=== PATIENT | male | born 1975 | race Hispanic/Latino ===

== ENCOUNTER 2017-11-26 02:02 | Emergency (ER) | payer MEDICARE, MEDICAID ==
[2017-11-26 02:02] VITALS: BMI 28.8
--- NOTE | 2017-11-26 02:25 | ED PDOC ---
HPI: Psych/Substance Abuse Time Seen by Provider: 11/26/17 02:12 Chief Complaint (Nursing): Psychiatric Evaluation Chief Complaint (Provider): depression History Per: Patient History/Exam Limitations: no limitations Additional Complaint(s): 41 y/o male presents for evaluation of worsening depression x 1 week. Patient states his is currently very ill in an intensive care unit in [place] and he can not get to her. Patient crying. Denies suicidal/homicidal ideations, hallucinations, acute physical complaints. Noncompliant with psych meds Past Medical History Reviewed: Historical Data, Nursing Documentation, Vital Signs Vital Signs: Last Vital Signs Temp 97.5 F L 11/26/17 02:08 Pulse 69 11/26/17 02:08 Resp 18 11/26/17 02:08 BP 121/75 11/26/17 02:08 Pulse Ox 100 11/26/17 02:08 - Medical History PMH: Anxiety, Bipolar Disorder, Depression, Post Traumatic Stress Disorder, Schizophrenia, Seizures Denies: HIV, HTN, Chronic Kidney Disease, Sexually Transmitted Disease - Surgical History Surgical History: Tonsillectomy - Family History Family History: States: Unknown Family Hx - Immunization History Hx Tetanus Toxoid Vaccination: Yes Hx Influenza Vaccination: Yes Hx Pneumococcal Vaccination: Yes - Home Medications Home Medications: Ambulatory Orders Medication Instructions Recorded Alprazolam [Xanax] 2 mg PO BID 11/23/17 Divalproex [Depakote ER] 250 mg PO BID 11/23/17 - Allergies Allergies/Adverse Reactions: Allergies Allergy/AdvReac Type Severity Reaction Status Date / Time aripiprazole [From Abilify] Allergy Verified 11/23/17 21:53 haloperidol [From Haldol] Allergy Verified 11/23/17 21:53 lithium Allergy Verified 11/23/17 21:53 olanzapine [From Zyprexa] Allergy Verified 11/23/17 21:53 risperidone [From Risperdal] Allergy Verified 11/23/17 21:53 sertraline [From Zoloft] Allergy Verified 11/23/17 21:53 ziprasidone [From Geodon] Allergy Verified 11/23/17 21:53 Review of Systems ROS Statement: Except As Marked, All Systems Reviewed And Found Negative Psych: Positive for: Depression Physical Exam - Reviewed Nursing Documentation Reviewed: Yes Vital Signs Reviewed: Yes - Physical Exam Appears: Positive for: Well, Non-toxic, In Acute Distress (crying) Head Exam: Positive for: ATRAUMATIC, NORMAL INSPECTION, NORMOCEPHALIC Skin: Positive for: Normal Color Eye Exam: Positive for: Normal appearance ENT: Positive for: Normal ENT Inspection Cardiovascular/Chest: Positive for: Regular Rate, Rhythm Respiratory: Positive for: Normal Breath Sounds Gastrointestinal/Abdominal: Positive for: Normal Exam Back: Positive for: Normal Inspection Extremity: Positive for: Normal ROM Neurologic/Psych: Positive for: Alert, Oriented - ECG O2 Sat by Pulse Oximetry: 100 - Progress ED Course And Treament: Patient evaluated by tobacco farmworker; does not meet criteria for admission at this time as per Dr. Ortiz Information given for outpatient follow up Patient stable for discharge Return precautions given Disposition - Clinical Impression Clinical Impression: Depression - Patient ED Disposition Is Patient to be Admitted: No Counseled Patient/Family Regarding: Diagnosis, Need For Followup - Disposition Disposition: Routine/Home Disposition Time: 02:55 Condition: STABLE Instructions: Depression Forms: [employer] (Bulgarian)
[2017-11-26 03:00] VITALS: RESP 18; O2SAT 100
[2017-11-26 06:02] VITALS: BP 128/78; PULSE 74; TEMP 97.8
== END 2017-11-26 06:02 | disposition home or self-care (01) ==
LOC: H.ER 02:02
DX: F32.9 Major depressive disorder, single episode, unspecified (principal); Z86.59 Personal history of other mental and behavioral disorders; F43.10 Post-traumatic stress disorder, unspecified; Z91.14 Patient's other noncompliance with medication regimen

== ENCOUNTER 2017-11-27 16:57 | Emergency (ER) | payer MEDICARE, MEDICAID ==
[2017-11-27 16:57] VITALS: BMI 28.8
[2017-11-27 17:08] VITALS: RESP 16; TEMP 98.2; O2SAT 99
[2017-11-27] MEDS ORDERED: Sodium Chloride 0.9% 1,000 ML IV STA (17:33)
--- NOTE | 2017-11-27 17:45 | ED PDOC ---
Syncope/Near Syncope/Dizziness Time Seen by Provider: 11/27/17 17:29 Chief Complaint (Nursing): Syncope Chief Complaint (Provider): dizzy, feels dehydrated History Per: Patient History/Exam Limitations: no limitations Onset/Duration Of Symptoms: Gradual Current Symptoms Are (Timing): Still Present Activity At Onset Of Symptoms: Exertional Activity Associated Symptoms Preceding Syncopal Episode: Lightheadedness Severity: Moderate Additional Complaint(s): 41yo male c/o dizziness and feels dehydrated from walking extensively. Admits to being homeless, arrived at [facility] a short while ago after traveling from [facility]. Denies falls, trauma, fever, chest pain or SOB. Pt known to automotive service writer from prior visits. Has psychiatric history, states hasnt taken depakote or prozac in several days but denies SI/HI, or hallucinations. Past Medical History Reviewed: Historical Data, Nursing Documentation, Vital Signs Vital Signs: Last Vital Signs Temp 98.2 F 11/27/17 17:08 Pulse 70 11/27/17 17:08 Resp 16 11/27/17 17:08 BP 99/74 L 11/27/17 17:08 Pulse Ox 99 11/27/17 17:08 - Medical History PMH: Anxiety, Bipolar Disorder, Depression, Post Traumatic Stress Disorder, Schizophrenia, Seizures Denies: Diabetes, Hepatitis, HIV, HTN, Chronic Kidney Disease, Sexually Transmitted Disease - Surgical History Surgical History: Tonsillectomy - Family History Family History: States: Unknown Family Hx - Immunization History Hx Tetanus Toxoid Vaccination: Yes Hx Influenza Vaccination: Yes Hx Pneumococcal Vaccination: Yes - Home Medications Home Medications: Ambulatory Orders Medication Instructions Recorded ARIPiprazole [Abilify] 5 mg PO BID 7 Days #14 tab 11/30/17 Divalproex [Depakote DR(*BID*)] 750 mg PO HS 7 Days #21 tcp 11/30/17 - Allergies Allergies/Adverse Reactions: Allergies Allergy/AdvReac Type Severity Reaction Status Date / Time amoxicillin Allergy RASH Verified 11/30/17 23:32 haloperidol [From Haldol] Allergy RASH Verified 11/30/17 23:32 lithium Allergy RASH Verified 11/30/17 23:32 olanzapine [From Zyprexa] Allergy RASH Verified 11/30/17 23:32 risperidone [From Risperdal] Allergy RASH Verified 11/30/17 23:32 sertraline [From Zoloft] Allergy RASH Verified 11/30/17 23:32 ziprasidone [From Geodon] Allergy RASH Verified 11/30/17 23:32 Review of Systems Constitutional: Negative for: Fever Cardiovascular: Negative for: Chest Pain Gastrointestinal: Negative for: Abdominal Pain Genitourinary Male: Negative for: Dysuria Skin: Negative for: Rash, Lesions Neurological: Positive for: Dizziness. Negative for: Confusion, Headache Psych: Negative for: Suicidal ideation Physical Exam - Reviewed Nursing Documentation Reviewed: Yes Vital Signs Reviewed: Yes - Physical Exam Appears: Positive for: Well, Non-toxic, No Acute Distress Head Exam: Positive for: ATRAUMATIC, NORMAL INSPECTION, NORMOCEPHALIC Skin: Positive for: Normal Color, Warm, DRY Eye Exam: Positive for: EOMI, Normal appearance, PERRL ENT: Positive for: Normal ENT Inspection, Other (facial tattoos) Neck: Positive for: Normal, Painless ROM Cardiovascular/Chest: Positive for: Regular Rate, Rhythm Respiratory: Positive for: CNT, Normal Breath Sounds Gastrointestinal/Abdominal: Positive for: Normal Exam, Soft Back: Positive for: Normal Inspection Extremity: Positive for: Normal ROM Neurologic/Psych: Positive for: Alert, Oriented, Mood/Affect (eccentric). Negative for: Motor/Sensory Deficits, Facial Droop - Laboratory Results Result Diagrams: 11/27/17 18:05 11/27/17 18:05 - ECG O2 Sat by Pulse Oximetry: 99 Medical Decision Making Medical Decision Making: basic labs, EKG and IVF bolus ordered labs clinically unremarkable Recd IVF, tolerated PO, had stable gait and no psychiatric complaints at visit. DC from ED Disposition - Clinical Impression Clinical Impression: Dizziness - Patient ED Disposition Is Patient to be Admitted: No - Disposition Referrals: [facility] [Outside] Disposition Time: 18:40 Condition: STABLE Additional Instructions: Drink plenty of fluids. Return to ER for any concern. Instructions: Dizziness, Nonvertigo, (DC) Forms: [employer] (Nigerian)
[2017-11-27 18:22] LABS: BASO % 0.5 % (0.0-2.0); EOS # 0.2 K/uL (0.0-0.7); EOS % 3.8 % (0.0-4.0); LYMPH # 1.1 K/uL (1.0-4.3); LYMPH % 19.4 % (20.0-40.0); MEAN CELL VOLUME 102.2 fl (80.0-94.0); MEAN CORPUSCULAR HEMOGLOBIN 35.1 pg (27.0-31.0); MEAN CORPUSCULAR HGB CONC 34.4 g/dL (33.0-37.0); MEAN PLATELET VOLUME 7.1 fl (7.2-11.7); MONO # 0.4 K/uL (0.0-0.8); MONO % 6.2 % (0.0-10.0); NEUT # 4.1 K/uL (1.8-7.0); NEUT % 70.1 % (50.0-75.0); NRBC % 0.1 % (0.0-0.0); RED CELL DISTRIBUTION WIDTH 13.8 % (11.5-14.5); WHITE BLOOD COUNT 5.8 K/uL (4.8-10.8)
[2017-11-27 18:30] LABS: ALB/GLOB RATIO 1.3 (1.0-2.1); ALBUMIN 3.8 g/dL (3.5-5.0); ALT/SGPT 40 U/L (21-72); AST/SGOT 35 U/L (17-59); BLOOD UREA NITROGEN 17 mg/dl (9-20); CALCIUM 8.7 mg/dL (8.4-10.2); GFR AFRICAN-AMERICAN > 60; GFR NON-AFRICAN AMERICAN > 60
[2017-11-27 19:05] VITALS: BP 112/68; PULSE 82
--- NOTE | 2017-11-29 12:17 | CARD ---
APPROVED REPORT EKG Measurement Heart [id number] CO [id number] [id number] <Conclusion> Sinus bradycardia Otherwise normal ECG
== END 2017-11-27 19:20 | disposition home or self-care (01) ==
LOC: H.ER 16:57
DX: R42 Dizziness and giddiness (principal); Z86.59 Personal history of other mental and behavioral disorders; Z59.0 Homelessness
CPT/HCPCS: 80053; 80164; 82948; 85025; 93005; 99285; J7030

== ENCOUNTER 2017-11-28 15:08 | Inpatient (IN) | payer MEDICARE, MEDICAID ==
[2017-11-28 15:08] VITALS: BMI 28.8
--- NOTE | 2017-11-28 15:13 | ED PDOC ---
HPI: Psych/Substance Abuse Time Seen by Provider: 11/28/17 15:11 Chief Complaint (Provider): crisis eval History Per: Patient Additional Complaint(s): 41 y/o non-domiciled male presents for crisis evaluation. Patient claims he is suicidal with plan to jump off of a building. Patient states he has been off of his psych meds for over 2 months. He states he recently start using crystal meth again but denies use of any other drugs or alcohol. Patient offers no medical complaints at this time. PMD: none Past Medical History Reviewed: Historical Data, Nursing Documentation, Vital Signs - Medical History PMH: Anxiety, Bipolar Disorder, Depression, Post Traumatic Stress Disorder, Schizophrenia, Seizures - Surgical History Surgical History: Tonsillectomy - Family History Family History: States: No Known Family Hx - Living Arrangements Living Arrangements: Other (non-domiciled) - Social History Current smoker - smoking cessation education provided: No Alcohol: None Drugs: Methamphetamine - Home Medications Home Medications: Ambulatory Orders Medication Instructions Recorded Alprazolam [Xanax] 2 mg PO BID 11/23/17 Divalproex [Depakote ER] 250 mg PO BID 11/23/17 - Allergies Allergies/Adverse Reactions: Allergies Allergy/AdvReac Type Severity Reaction Status Date / Time aripiprazole [From Abilify] Allergy RASH Verified 11/28/17 15:12 haloperidol [From Haldol] Allergy RASH Verified 11/28/17 15:12 lithium Allergy RASH Verified 11/28/17 15:12 olanzapine [From Zyprexa] Allergy RASH Verified 11/28/17 15:12 risperidone [From Risperdal] Allergy RASH Verified 11/28/17 15:12 sertraline [From Zoloft] Allergy RASH Verified 11/28/17 15:12 ziprasidone [From Geodon] Allergy RASH Verified 11/28/17 15:12 Review of Systems ROS Statement: Except As Marked, All Systems Reviewed And Found Negative Constitutional: Negative for: Fever Cardiovascular: Negative for: Chest Pain Respiratory: Negative for: Cough Gastrointestinal: Negative for: Nausea, Vomiting Psych: Positive for: Suicidal ideation Physical Exam - Reviewed Nursing Documentation Reviewed: Yes Vital Signs Reviewed: Yes - Physical Exam Appears: Positive for: Well, Non-toxic, No Acute Distress Head Exam: Positive for: ATRAUMATIC, NORMAL INSPECTION, NORMOCEPHALIC Skin: Positive for: Normal Color. Negative for: Rash Eye Exam: Positive for: Normal appearance Cardiovascular/Chest: Positive for: Regular Rate, Rhythm Respiratory: Positive for: Normal Breath Sounds. Negative for: Respiratory Distress Neurologic/Psych: Positive for: Alert, Oriented - Laboratory Results Result Diagrams: 11/28/17 16:06 11/28/17 16:06 - ECG O2 Sat by Pulse Oximetry: 99 Pulse Ox Interpretation: Normal - Other Rad CXR X-Ray: Interpreted by Me, Viewed By Me X-Ray Interpretation: no acute finding Medical Decision Making Medical Decision Makin41 y/o with suicidal ideation Plan: Crisis eval 1:1 observation CBC CMP BAL UA CXR As per crisis counselor and psychiatrist marketing sales consultant Dr. Ortiz, patient does meet criteria for admission. Patient agrees to stay and signed himself in. Patient is medically stable for psychiatric admission. Disposition - Clinical Impression Clinical Impression: Bipolar disorder - Patient ED Disposition Is Patient to be Admitted: Yes - Disposition Disposition Time: 16:10 Condition: FAIR - Pt Status Changed To: Hospital Disposition Of: Inpatient - Admit Certification Admit to Inpatient:: After my assessment, the patient will require hospitalization for at least two midnights. This is because of the severity of symptoms shown, intensity of services needed, and/or the medical risk in this patient being treated as an outpatient. Results - Lab Results Lab Results: 11/28/17 11/28/17 11/28/17 16:06 16:06 16:06 WBC 5.6 RBC 3.91 L Hgb 13.7 Hct 39.8 MCV 101.6 H MCH 35.0 H MCHC 34.4 RDW 13.6 Plt Count 271 MPV 7.2 Neut % (Auto) 64.4 Lymph % (Auto) 23.3 Jack % (Auto) 8.5 Eos % (Auto) 2.9 Baso % (Auto) 0.9 Neut # (Auto) 3.6 Lymph # (Auto) 1.3 Jack # (Auto) 0.5 Eos # (Auto) 0.2 Baso # (Auto) 0.0 Sodium Potassium Chloride Carbon Dioxide Anion Gap BUN Creatinine Est GFR ( Amer) Est GFR (Non-Af Amer) Random Glucose Calcium Total Bilirubin AST ALT Alkaline Phosphatase Total Protein Albumin Globulin Albumin/Globulin Ratio Urine Color Yellow Urine Clarity Clear Urine pH 6.0 Ur Specific [place] 1.023 Urine Protein Negative Urine Glucose (UA) Neg Urine Ketones Negative Urine Blood Negative Urine Nitrate Negative Urine Bilirubin Negative Urine Urobilinogen 0.2-1.0 Ur Leukocyte Esterase Neg Urine RBC (Auto) 2 Urine Microscopic WBC < 1 Ur Squamous Epith Cells < 1 Urine Opiates Screen Negative Urine Methadone Screen Negative Ur Barbiturates Screen Negative Ur Phencyclidine Scrn Negative Ur Amphetamines Screen Negative U Benzodiazepines Scrn Negative U Oth Cocaine Metabols Negative U Cannabinoids Screen Negative Alcohol, Quantitative 11/28/17 16:06 WBC RBC Hgb Hct MCV MCH MCHC RDW Plt Count MPV Neut % (Auto) Lymph % (Auto) Jack % (Auto) Eos % (Auto) Baso % (Auto) Neut # (Auto) Lymph # (Auto) Jack # (Auto) Eos # (Auto) Baso # (Auto) Sodium 141 Potassium 3.4 L Chloride 105 Carbon Dioxide 24 Anion Gap 15 BUN 18 Creatinine 0.8 Est GFR ( Amer) > 60 Est GFR (Non-Af Amer) > 60 Random Glucose 102 Calcium 8.3 L Total Bilirubin 0.6 AST 39 ALT 44 Alkaline Phosphatase 65 Total Protein 6.7 Albumin 3.8 Globulin 2.9 Albumin/Globulin Ratio 1.3 Urine Color Urine Clarity Urine pH Ur Specific [place] Urine Protein Urine Glucose (UA) Urine Ketones Urine Blood Urine Nitrate Urine Bilirubin Urine Urobilinogen Ur Leukocyte Esterase Urine RBC (Auto) Urine Microscopic WBC Ur Squamous Epith Cells Urine Opiates Screen Urine Methadone Screen Ur Barbiturates Screen Ur Phencyclidine Scrn Ur Amphetamines Screen U Benzodiazepines Scrn U Oth Cocaine Metabols U Cannabinoids Screen Alcohol, Quantitative < 10
[2017-11-28 15:15] VITALS: O2SAT 99
--- NOTE | 2017-11-28 15:34 | RAD ---
HISTORY: clearance COMPARISON: Chest radiograph dated 09/24/2014. FINDINGS: LUNGS: No active pulmonary disease. PLEURA: No significant pleural effusion identified, no pneumothorax apparent. CARDIOVASCULAR: Normal. OSSEOUS STRUCTURES: No significant abnormalities. VISUALIZED UPPER ABDOMEN: Normal. OTHER FINDINGS: None. IMPRESSION: No active disease.
[2017-11-28 16:13] LABS: BASO % 0.9 % (0.0-2.0); EOS # 0.2 K/uL (0.0-0.7); EOS % 2.9 % (0.0-4.0); HEMOGLOBIN 13.7 g/dL (12.0-18.0); LYMPH # 1.3 K/uL (1.0-4.3); LYMPH % 23.3 % (20.0-40.0); MEAN CELL VOLUME 101.6 fl (80.0-94.0); MEAN CORPUSCULAR HGB CONC 34.4 g/dL (33.0-37.0); MEAN PLATELET VOLUME 7.2 fl (7.2-11.7); MONO # 0.5 K/uL (0.0-0.8); MONO % 8.5 % (0.0-10.0); NEUT # 3.6 K/uL (1.8-7.0); NEUT % 64.4 % (50.0-75.0); RBC 3.91 Mil/uL (4.40-5.90); RED CELL DISTRIBUTION WIDTH 13.6 % (11.5-14.5); WHITE BLOOD COUNT 5.6 K/uL (4.8-10.8)
[2017-11-28 16:19] LABS: SQUAMOUS EPITHIAL < 1 /hpf (0-5); URINE BILIRUBIN NEGATIVE (NEGATIVE); URINE BLOOD NEGATIVE (NEGATIVE); URINE CLARITY CLEAR (Clear); URINE COLOR YELLOW (YELLOW); URINE GLUCOSE (UA) NEG (Normal); URINE LEUKOCYTE ESTERASE NEG Leu/uL (Negative); URINE PROTEIN NEGATIVE (NEGATIVE); URINE UROBILINOGEN 0.2-1.0 mg/dL (0.2-1.0)
[2017-11-28 16:27] LABS: ALB/GLOB RATIO 1.3 (1.0-2.1); ALBUMIN 3.8 g/dL (3.5-5.0); ALT/SGPT 44 U/L (21-72); AST/SGOT 39 U/L (17-59); BLOOD UREA NITROGEN 18 mg/dl (9-20); CALCIUM 8.3 mg/dL (8.4-10.2); GFR AFRICAN-AMERICAN > 60; GFR NON-AFRICAN AMERICAN > 60
[2017-11-28 16:41] LABS: BARBITURATES, UR NEGATIVE (NEGATIVE); BENZODIAZEPINES, UR NEGATIVE (NEGATIVE); OPIATES, UR NEGATIVE (NEGATIVE); PHENCYCLIDINE, UR NEGATIVE (NEGATIVE)
[2017-11-28] MEDS ORDERED: Potassium Chloride 20 mEq ER Tab PO STA (17:17)
[2017-11-28] MEDS ORDERED: Alum-Mag Hydrox-Simethicone Susp (30 mL) PO PRN (18:45)
[2017-11-28] MEDS ORDERED: Magnesium Hydroxide Susp 30 ml UD PO PRN (18:45)
[2017-11-28] MEDS ORDERED: DiphenhydrAMINE 50 mg/ml Inj IM PRN (18:45)
--- NOTE | 2017-11-28 18:57 | PCM.BM ---
<Sunil Saavedra - Last Filed: 11/28/17 18:55> Treatment Plan Problems - Problems identified on initial assessmt Hopelessness/Helplessness Date Initiated: 11/28/17 Time Initiated: 18:55 Assessment reference: Treatment assets and liabiliti Patient Assests: adapts well, ADL independent, negotiates basic needs Patient Liabilities: substance abuse - Milieu Protocol Maintain good personal hygiene: every shift Encourage regular showers, every shift Remind patient to perform daily oral care, every shift Assist patient to perform ADL's Conduct patient checks and document Observation sheet: Q15 minutes Maintain personal safety: every shift Educate patient to report safety concerns to staff, every shift Monitor environment for contraband/sharps Medication safety: Monitor for expected outcome, potential side effects: every shift, Assess barriers to learning: every shift, Assess readiness for medication education: every shift Family Contact Family involvement: Famliy/SO not involved Family contact: Patient declines to allow family contact at present <Antione Ortiz - Last Filed: 11/30/17 10:49> - Diagnosis (1) Depression Status: Acute Interventions: psychotherapy, pharmacotherapy 11/30/17 10:49
[2017-11-28 20:36] VITALS: RESP 18
[2017-11-29 06:55] LABS: HDL CHOLESTEROL 41 MG/DL (30-70)
[2017-11-29 07:08] LABS: LDL CHOLESTEROL 64 mg/dL (0-129)
[2017-11-29 07:13] LABS: T4 4.59 ug/dl (5.5-11.0)
[2017-11-29] MEDS ORDERED: Divalproex 500 mg DR(BID formulation) PO SCH (10:00)
--- NOTE | 2017-11-29 11:39 | CP.PCM.CON ---
History of Present Illness - History of Present Illness History of Present Illness: 41 yo male with historyof schizoaffective DO and seizure DO admitted to psyche unit because of suicidal ideation and depression. Review of Systems - Review of Systems All systems: reviewed and no additional remarkable complaints except (aside from those mentioned above, 12 point system review were negative by me) Past Patient History - Infectious Disease Hx of Infectious Diseases: None - Tetanus Immunizations Tetanus Immunization: Unknown - Past Social History Smoking Status: Never Smoked Alcohol: None Drugs: Methamphetamine - CARDIAC Hx Cardiac Disorders: No - PULMONARY Hx Respiratory Disorders: No Hx Tuberculosis: No - NEUROLOGICAL Hx Neurological Disorder: Yes Hx Seizures: Yes Other/Comment: history of seizure on depakote - HEENT Hx Difficulty Chewing: Yes Other/Comment: painful gums - RENAL Hx Chronic Kidney Disease: No - ENDOCRINE/METABOLIC Hx Endocrine Disorders: No - HEMATOLOGICAL/ONCOLOGICAL Hx Blood Disorders: No Hx Cancer: No Hx Human Immunodeficiency Virus (HIV): No - INTEGUMENTARY Hx Dermatological Problems: No - MUSCULOSKELETAL/RHEUMATOLOGICAL Hx Musculoskeletal Disorders: No - GASTROINTESTINAL Hx Gastrointestinal Disorders: No - GENITOURINARY/GYNECOLOGICAL Hx Genitourinary Disorders: No Hx Sexually Transmitted Disorders: No - PSYCHIATRIC Hx Bipolar Disorder: Yes Hx Emotional Abuse: Yes Hx Physical Abuse: No Hx Schizophrenia: Yes Hx Sexual Abuse: No Hx Substance Use: Yes - SURGICAL HISTORY Hx Surgeries: No Hx Tonsillectomy: Yes - ANESTHESIA Hx Anesthesia: Yes Hx Anesthesia Reactions: No Hx Malignant Hyperthermia: No Meds Allergies/Adverse Reactions: Allergies Allergy/AdvReac Type Severity Reaction Status Date / Time haloperidol [From Haldol] Allergy RASH Verified 11/28/17 15:12 lithium Allergy RASH Verified 11/28/17 15:12 olanzapine [From Zyprexa] Allergy RASH Verified 11/28/17 15:12 risperidone [From Risperdal] Allergy RASH Verified 11/28/17 15:12 sertraline [From Zoloft] Allergy RASH Verified 11/28/17 15:12 ziprasidone [From Geodon] Allergy RASH Verified 11/28/17 15:12 - Medications Medications: Current Medications Acetaminophen (Tylenol 325mg Tab) 650 mg PO Q4 PRN PRN Reason: Pain, moderate (4-7) Al Hydrox/Mg Hydrox/Simethicone (Maalox Plus 30 Ml) 30 ml PO Q4 PRN PRN Reason: Dyspepsia Aripiprazole (Abilify) 5 mg PO BID ROXANNE Diphenhydramine HCl (Benadryl) 50 mg IM Q6 PRN PRN Reason: Extrapyramidal S/S Unable PO Diphenhydramine HCl (Benadryl) 50 mg PO Q6 PRN PRN Reason: Extrapyramidal Symptoms Diphenhydramine HCl (Benadryl) 50 mg PO HS PRN PRN Reason: Sleep Divalproex Sodium (Depakote Dr(*Bid*)) 500 mg PO BID ROXANNE Hydroxyzine Pamoate (Vistaril) 50 mg PO Q8 PRN PRN Reason: Anxiety Magnesium Hydroxide (Milk Of Magnesia) 30 ml PO HS PRN PRN Reason: Constipation Physical Exam - Constitutional Appears: No Acute Distress - Head Exam Head Exam: ATRAUMATIC - Eye Exam Eye Exam: absent: Scleral icterus - ENT Exam ENT Exam: Mucous Membranes Moist - Expanded ENT Exam Expanded Teeth exam: edentulous, fractured tooth # - Neck Exam Neck exam: Negative for: Meningismus - Respiratory Exam Respiratory Exam: absent: Rales, Rhonchi, Wheezes, Respiratory Distress - Cardiovascular Exam Cardiovascular Exam: REGULAR RHYTHM, +S1, +S2 - GI/Abdominal Exam GI & Abdominal Exam: Soft. absent: Tenderness - Rectal Exam Rectal Exam: Deferred - Extremities Exam Extremities exam: Negative for: calf tenderness, pedal edema - Back Exam Back exam: NORMAL INSPECTION - Neurological Exam Neurological exam: Alert, Oriented x3 - Psychiatric Exam Psychiatric exam: Normal Affect - Skin Skin Exam: Dry, Intact Results - Vital Signs Recent Vital Signs: Last Vital Signs Temp 97.1 F L 11/28/17 22:00 Pulse 80 11/28/17 22:00 Resp 18 11/28/17 22:00 BP 125/64 11/28/17 22:00 Pulse Ox 99 11/28/17 16:59 - Labs Result Diagrams: 11/28/17 16:06 11/28/17 16:06 Labs: Laboratory Results - last 24 hr 11/28/17 11/28/17 11/28/17 16:06 16:06 16:06 WBC 5.6 RBC 3.91 L Hgb 13.7 Hct 39.8 MCV 101.6 H MCH 35.0 H MCHC 34.4 RDW 13.6 Plt Count 271 MPV 7.2 Neut % (Auto) 64.4 Lymph % (Auto) 23.3 [place] % (Auto) 8.5 Eos % (Auto) 2.9 Baso % (Auto) 0.9 Neut # (Auto) 3.6 Lymph # (Auto) 1.3 [place] # (Auto) 0.5 Eos # (Auto) 0.2 Baso # (Auto) 0.0 Sodium 141 Potassium 3.4 L Chloride 105 Carbon Dioxide 24 Anion Gap 15 BUN 18 Creatinine 0.8 Est GFR ( Amer) > 60 Est GFR (Non-Af Amer) > 60 Random Glucose 102 Calcium 8.3 L Total Bilirubin 0.6 AST 39 ALT 44 Alkaline Phosphatase 65 Total Protein 6.7 Albumin 3.8 Globulin 2.9 Albumin/Globulin Ratio 1.3 Triglycerides Cholesterol LDL Cholesterol Direct HDL Cholesterol Thyroxine (T4) TSH 3rd Generation Urine Color Urine Clarity Urine pH Ur Specific [place] Urine Protein Urine Glucose (UA) Urine Ketones Urine Blood Urine Nitrate Urine Bilirubin Urine Urobilinogen Ur Leukocyte Esterase Urine RBC (Auto) Urine Microscopic WBC Ur Squamous Epith Cells Urine Opiates Screen Negative Urine Methadone Screen Negative Ur Barbiturates Screen Negative Ur Phencyclidine Scrn Negative Ur Amphetamines Screen Negative U Benzodiazepines Scrn Negative U Oth Cocaine Metabols Negative U Cannabinoids Screen Negative Alcohol, Quantitative < 10 11/28/17 11/29/17 11/29/17 16:06 06:20 06:20 WBC RBC Hgb Hct MCV MCH MCHC RDW Plt Count MPV Neut % (Auto) Lymph % (Auto) [place] % (Auto) Eos % (Auto) Baso % (Auto) Neut # (Auto) Lymph # (Auto) [place] # (Auto) Eos # (Auto) Baso # (Auto) Sodium Potassium Chloride Carbon Dioxide Anion Gap BUN Creatinine Est GFR ( Amer) Est GFR (Non-Af Amer) Random Glucose Calcium Total Bilirubin AST ALT Alkaline Phosphatase Total Protein Albumin Globulin Albumin/Globulin Ratio Triglycerides 48 Cholesterol 127 LDL Cholesterol Direct 64 HDL Cholesterol 41 Thyroxine (T4) 4.59 L TSH 3rd Generation 1.33 Urine Color Yellow Urine Clarity Clear Urine pH 6.0 Ur Specific [place] 1.023 Urine Protein Negative Urine Glucose (UA) Neg Urine Ketones Negative Urine Blood Negative Urine Nitrate Negative Urine Bilirubin Negative Urine Urobilinogen 0.2-1.0 Ur Leukocyte Esterase Neg Urine RBC (Auto) 2 Urine Microscopic WBC < 1 Ur Squamous Epith Cells < 1 Urine Opiates Screen Urine Methadone Screen Ur Barbiturates Screen Ur Phencyclidine Scrn Ur Amphetamines Screen U Benzodiazepines Scrn U Oth Cocaine Metabols U Cannabinoids Screen Alcohol, Quantitative Assessment & Plan (1) Suicidal ideation Status: Acute Comment: psyche is managing (2) Seizure disorder Status: Acute Comment: continue Depakote (3) Gingiva disorder Status: Acute Comment: follow up with dentist as outpatient. Lidocaine viscous, eritrean and swallow q 4hrs prn for gingival pain
--- NOTE | 2017-11-29 14:44 | PCM.PSYCH ---
Initial Psychiatric Evaluation - Initial Psychiatric Evaluation Type of Admission: Voluntary Legal Status: Capacity Chief Complaint (in patient's own words): I stopped taking my medications and I relapsed Patient's Reaction to Hospitalization: pt requested help History of Present Illness and Precipitating Events: pt is a 41ys old male with previous psychiatric diagnosis of bipolar disorder and stimulant abuse, pt has not been compliant with medications or follow up for almost a year, has relapsed on stimulants last use three weeks ago, pt was feeling increasingly depressed due to being homeless. having financial difficulties and loosing his girlfriend , on day of evaluation pt started experiencing suicidal ideation with plan to shoot himself, pt came to ER seeking help on the unit pt , pt is presenting with labile affect, loud and pressured speech , hyperactivitiy and irritability reporting passive suicidal ideation without active plan on the unit, denied homicidal ideation, denied perceptual disturbances Current Medications: Active Medications Generic Name Dose Route Start Last Admin Trade Name Freq PRN Reason Stop Dose Admin Acetaminophen 650 mg 11/28/17 18:45 Tylenol 325mg Tab PO Q4 PRN Pain, moderate (4-7) Al Hydrox/Mg Hydrox/Simethicone 30 ml 11/28/17 18:45 Maalox Plus 30 Ml PO Q4 PRN Dyspepsia Aripiprazole 5 mg 11/29/17 10:00 11/29/17 12:25 Abilify PO 5 mg BID ROXANNE Administration Diphenhydramine HCl 50 mg 11/28/17 18:45 Benadryl IM Q6 PRN Extrapyramidal S/S Unable PO Diphenhydramine HCl 50 mg 11/28/17 18:45 Benadryl PO Q6 PRN Extrapyramidal Symptoms Diphenhydramine HCl 50 mg 11/28/17 18:49 Benadryl PO HS PRN Sleep Divalproex Sodium 500 mg 11/30/17 09:00 Depeffie Marley(*Bid*) PO DAILY ROXANNE Divalproex Sodium 750 mg 11/29/17 22:00 Shirlene Marley(*Bid*) PO HS ROXANNE Hydroxyzine Pamoate 50 mg 11/29/17 09:53 Vistaril PO Q8 PRN Anxiety Lidocaine HCl 15 ml 11/29/17 11:49 Lidocaine 2% Viscous PO Q4 PRN gum pain Magnesium Hydroxide 30 ml 11/28/17 18:45 Milk Of Magnesia PO HS PRN Constipation Trazodone HCl 100 mg 11/29/17 13:27 Desyrel PO HS PRN Insomnia Past Psychiatric History - Past Psychiatric History Explanation of prior treatment: multiple inpatient hospitalizations, hx of non compliance History of ETOH/Drug Use: amphetamine abuse Pertinent Medical Hx (Current Medical&Sleep Prob, Allergies): Allergies Allergy/AdvReac Type Severity Reaction Status Date / Time haloperidol [From Haldol] Allergy RASH Verified 11/28/17 15:12 lithium Allergy RASH Verified 11/28/17 15:12 olanzapine [From Zyprexa] Allergy RASH Verified 11/28/17 15:12 risperidone [From Risperdal] Allergy RASH Verified 11/28/17 15:12 sertraline [From Zoloft] Allergy RASH Verified 11/28/17 15:12 ziprasidone [From Geodon] Allergy RASH Verified 11/28/17 15:12 RX: No Known Home Med 11/28/17 Mental Status Examination - Personal Presentation Personal Presentation: Looks older than stated age - Affect Affect: Constricted Additional comments: labile, irritable - Motor Activity Motor Activity: Psychomotor Agitation - Reliability in Providing Information Reliability in Providing Information: Poor, due to alteration in thoughts, Poor , due to altered mood - Speech Speech: Relevant - Mood Mood: Depressed, Anxious - Formal Thought Process Formal Thought Process: Circumstantial - Hallucinations/Delusions Additional comments: pt denied perceptual disturbances, non elicited - Obsessions/Compulsions Obsessions: No Compulsions: No - Cognitive Functions Orientation: Person, Place, Situation Sensorium: Alert Attention/Concentration: Easily distracted Abstract Thinking: [place] Judgement: Imparied, as evidence by: Poor judgement, Imparied, as evidence by: Lack of insight into illness - Risk Risk: Suicidal, Diminished functioning - Strength & Assets Inventory Strength & Assets Inventory: Life experience - Limitations Additional comments: homeless DSM 5 DX - DSM 5 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
[2017-11-29] MEDS ORDERED: Divalproex 250 mg DR(BID formulation) PO SCH (22:00)
[2017-11-30] MEDS ORDERED: Divalproex 500 mg DR(BID formulation) PO SCH (09:00)
[2017-11-30 09:08] VITALS: PULSE 59; TEMP 96.4
[2017-11-30 10:06] VITALS: BP 109/79
--- NOTE | 2017-11-30 11:02 | PCM.PYCHDC ---
Mental Status Examination - Mental Status Examination Orientation: Person, Place, Situation Memory: Intact Mood: Anxious Affect: Broad Speech: Loud Attention: WNL Concentration: WNL Association: WNL Fund of Knowledge: Poor Formal Thought Process: Circumstantial Description of patient's judgement and insight: partial insight and poor judgment Psychotic Thoughts and Behaviors: pt denied any current psychotic symptoms, non elicited Suicidal Ideation: No Current Homicidal Ideation?: No Discharge Summary - Discharge Note Reason for Hospitalization: pt is a 41ys old male with previous psychiatric diagnosis of bipolar disorder and stimulant abuse, pt has not been compliant with medications or follow up for almost a year, has relapsed on stimulants last use three weeks ago, pt was feeling increasingly depressed due to being homeless. having financial difficulties and loosing his girlfriend , on day of evaluation pt started experiencing suicidal ideation with plan to shoot himself, pt came to ER seeking help on the unit pt , pt is presenting with labile affect, loud and pressured speech , hyperactivitiy and irritability reporting passive suicidal ideation without active plan on the unit, denied homicidal ideation, denied perceptual disturbances Laboratory Data: Abnormal Lab Results 11/29/17 11/29/17 06:20 06:35 Hemoglobin A1c 4.9 RPR Nonreactive Consultations:: List each consultation separately and include: 1. Reason for request. 2. Findings. 3. Follow-up Summary of Hospital Course include:: 1. Description of specific treatment plan utilized for patients during their course of treatmen. 2. Summarize the time- course for resolution of acute symptoms and/or regressed behaviors. 3. Describe issues identified and worked on during hospitalization. 4. Describe medication utilized. 5. Describe medical problems identified and treated. 6. Reassessment of suicide risk Summary of Hospital Course: pt on admission was presenting with hypomanic , irritable labile affect pt was started on depakote and abilify for mood stabilization and depression pt was compliant with medications, however requested to be discharged against medical advise, pt was provided education in reference to possible relapse on stimulants, and with possible effect of that on mental status, motivational therapy provided and encouraged pt to wait for referral to inpatient rehab, pt declined continued to request to be discharged against medical advise pt at current mental status denied any current suicidal or homicidal ideation, denied perceptual disturbances, non elicited pt at current mental status not danger to self or others ,declining to continue for further stabilization and referral to rehab will be discharged against medical advise - Diagnosis (1) Depression Current Visit: Yes Status: Acute - Final Diagnosis (DSM 5) Condition upon Discharge: FAIR DSM 5: schizoaffective disorder bipolar stimulant abuse Disposition: AGAINST MEDICAL ADVICE Prescriptions/Medication Reconciliation: ARIPiprazole [Abilify] 5 mg PO BID 7 Days #14 tab Divalproex [Depakote DR(*BID*)] 750 mg PO HS 7 Days #21 tcp Divalproex [Depakote DR(*BID*)] 500 mg PO DAILY 7 Days #7 tcp - Antipsychotic Medications Pt discharged on 2 or more routine antipsychotic medications: No
== END 2017-11-30 11:07 | disposition left against medical advice (07) | DRG 885 ==
LOC: H.ER 15:08 → H.ERHOLD 16:59 → H.PSYCH 18:06
PROVIDERS: ADMIT Psychiatry & Neurology Psychiatry; ATTEND Psychiatry & Neurology Psychiatry
PROC: GZHZZZZ Group Psychotherapy (ICD-10-PCS; principal; 2017-11-29)
PROC: GZ51ZZZ Individual Psychotherapy, Behavioral (ICD-10-PCS; 2017-11-29)
DX: F31.63 Bipolar disorder, current episode mixed, severe, without psychotic features (principal); R45.851 Suicidal ideations; F43.10 Post-traumatic stress disorder, unspecified; R56.9 Unspecified convulsions; Z91.14 Patient's other noncompliance with medication regimen; Z91.19 Patient's noncompliance with other medical treatment and regimen; F41.9 Anxiety disorder, unspecified; Z59.0 Homelessness; F15.10 Other stimulant abuse, uncomplicated; F25.9 Schizoaffective disorder, unspecified; K06.9 Disorder of gingiva and edentulous alveolar ridge, unspecified

== ENCOUNTER 2017-11-30 20:37 | Emergency (ER) | payer MEDICARE, MEDICAID ==
[2017-11-30 20:37] VITALS: BMI 28.8
[2017-11-30 20:43] VITALS: RESP 18; TEMP 98.1; O2SAT 99
--- NOTE | 2017-11-30 21:20 | ED PDOC ---
HPI: Psych/Substance Abuse Time Seen by Provider: 11/30/17 20:54 Chief Complaint (Nursing): Substance Abuse Chief Complaint (Provider): Meth withdrawal Additional Complaint(s): Pt presents with c/o meth withdrawal, arm itching. Denies suicidal/homicidal ideation. Past Medical History Reviewed: Nursing Documentation, Vital Signs Vital Signs: Last Vital Signs Temp 98.1 F 11/30/17 20:40 Pulse 77 11/30/17 20:40 Resp 18 11/30/17 20:40 BP 119/61 11/30/17 20:40 Pulse Ox 99 11/30/17 20:40 - Medical History PMH: Anxiety, Bipolar Disorder, Depression, Post Traumatic Stress Disorder, Schizophrenia, Seizures Denies: Diabetes, Hepatitis, HIV, HTN, Chronic Kidney Disease, Sexually Transmitted Disease - Surgical History Surgical History: Tonsillectomy - Family History Family History: States: Unknown Family Hx - Immunization History Hx Tetanus Toxoid Vaccination: Yes Hx Influenza Vaccination: Yes Hx Pneumococcal Vaccination: Yes - Home Medications Home Medications: Ambulatory Orders Medication Instructions Recorded ARIPiprazole [Abilify] 5 mg PO BID 7 Days #14 tab 11/30/17 Divalproex [Depakote DR(*BID*)] 500 mg PO DAILY 7 Days #7 tcp 11/30/17 Divalproex [Depakote DR(*BID*)] 750 mg PO HS 7 Days #21 tcp 11/30/17 - Allergies Allergies/Adverse Reactions: Allergies Allergy/AdvReac Type Severity Reaction Status Date / Time amoxicillin Allergy RASH Verified 11/30/17 20:40 haloperidol [From Haldol] Allergy RASH Verified 11/30/17 17:15 lithium Allergy RASH Verified 11/30/17 17:15 olanzapine [From Zyprexa] Allergy RASH Verified 11/30/17 17:15 risperidone [From Risperdal] Allergy RASH Verified 11/30/17 17:15 sertraline [From Zoloft] Allergy RASH Verified 11/30/17 17:15 ziprasidone [From Geodon] Allergy RASH Verified 11/30/17 17:15 Review of Systems ROS Statement: Except As Marked, All Systems Reviewed And Found Negative Skin: Positive for: Other (Itching) Physical Exam - Reviewed Nursing Documentation Reviewed: Yes Vital Signs Reviewed: Yes - Physical Exam Appears: Positive for: Well, No Acute Distress (Comfortable) Head Exam: Positive for: ATRAUMATIC, NORMAL INSPECTION Skin: Positive for: Normal Color, Warm, Dry. Negative for: Rash Eye Exam: Positive for: Normal appearance, EOMI, PERRL Cardiovascular/Chest: Positive for: Regular Rate, Rhythm Respiratory: Positive for: Normal Breath Sounds Extremity: Positive for: Normal ROM Neurologic/Psych: Positive for: Alert, Oriented - ECG O2 Sat by Pulse Oximetry: 99 Medical Decision Making Medical Decision Makin yo male with c/o meth withdrawal. Upon review of old records, pt discharged from [facility] today, refused drug rehab at that time, was also evaluated @ [facility] stating he used meth today and discharged. Disposition - Clinical Impression Clinical Impression: Drug abuse - Disposition Disposition: Routine/Home Disposition Time: 21:22 Condition: STABLE Additional Instructions: FOLLOW-UP WITH REHAB. Instructions: Drug Abuse and Drug Addiction (DC), Drug Abuse Treatment Forms: [email or web address] [facility] (Turkmen)
[2017-11-30 21:32] VITALS: BP 118/72; PULSE 62
== END 2017-11-30 21:39 | disposition home or self-care (01) ==
LOC: H.ER 20:37
DX: F11.10 Opioid abuse, uncomplicated (principal)

== ENCOUNTER 2017-12-19 01:07 | Emergency (ER) | payer MEDICARE, MEDICAID ==
[2017-12-19 01:23] VITALS: BMI 20.9
[2017-12-19 01:28] VITALS: BP 116/75; PULSE 75; RESP 16; TEMP 98.6; O2SAT 98
--- NOTE | 2017-12-19 02:53 | ED PDOC ---
HPI: Psych/Substance Abuse Time Seen by Provider: 12/19/17 01:11 Chief Complaint (Nursing): Psychiatric Evaluation Chief Complaint (Provider): SI - Ran out of psychiatric medications History Per: Patient History/Exam Limitations: no limitations Onset/Duration Of Symptoms: Days Current Symptoms Are (Timing): Still Present Additional Complaint(s): 42 yo male with history of seizure disorder and bipolar disorder presents with SI. Pt states he last took his medications earlier today. Pt does not have plan. Past Medical History Reviewed: Historical Data, Nursing Documentation, Vital Signs Vital Signs: Last Vital Signs Temp 98.6 F 12/19/17 01:24 Pulse 75 12/19/17 01:24 Resp 16 12/19/17 01:24 BP 116/75 12/19/17 01:24 Pulse Ox 98 12/19/17 01:24 - Medical History PMH: Anxiety, Bipolar Disorder, Depression, Post Traumatic Stress Disorder, Schizophrenia, Seizures Denies: Diabetes, Hepatitis, HIV, HTN, Chronic Kidney Disease, Sexually Transmitted Disease - Surgical History Surgical History: Tonsillectomy - Family History Family History: States: Unknown Family Hx - Living Arrangements Living Arrangements: With Family - Social History Current smoker - smoking cessation education provided: No - Immunization History Hx Tetanus Toxoid Vaccination: Yes Hx Influenza Vaccination: Yes Hx Pneumococcal Vaccination: Yes - Home Medications Home Medications: Ambulatory Orders Medication Instructions Recorded ARIPiprazole [Abilify] 5 mg PO BID 7 Days #14 tab 11/30/17 Divalproex [Depakote DR(*BID*)] 750 mg PO HS 7 Days #21 tcp 11/30/17 - Allergies Allergies/Adverse Reactions: Allergies Allergy/AdvReac Type Severity Reaction Status Date / Time amoxicillin Allergy RASH Verified 12/19/17 01:23 haloperidol [From Haldol] Allergy RASH Verified 12/19/17 01:23 lithium Allergy RASH Verified 12/19/17 01:23 olanzapine [From Zyprexa] Allergy RASH Verified 12/19/17 01:23 risperidone [From Risperdal] Allergy RASH Verified 12/19/17 01:23 sertraline [From Zoloft] Allergy RASH Verified 12/19/17 01:23 ziprasidone [From Geodon] Allergy RASH Verified 12/19/17 01:23 Review of Systems ROS Statement: Except As Marked, All Systems Reviewed And Found Negative Constitutional: Negative for: Fever, Chills Psych: Positive for: Suicidal ideation Physical Exam - Reviewed Nursing Documentation Reviewed: Yes Vital Signs Reviewed: Yes - Physical Exam Appears: Positive for: Well, Non-toxic, No Acute Distress Head Exam: Positive for: ATRAUMATIC, NORMAL INSPECTION, NORMOCEPHALIC Skin: Positive for: Normal Color, Warm, DRY Eye Exam: Positive for: Normal appearance ENT: Positive for: Normal ENT Inspection Neck: Positive for: Normal, Painless ROM Cardiovascular/Chest: Positive for: Regular Rate, Rhythm Respiratory: Positive for: Normal Breath Sounds. Negative for: Accessory Muscle Use, Respiratory Distress Back: Positive for: Normal Inspection Extremity: Positive for: Normal ROM Neurologic/Psych: Positive for: Alert, Oriented - ECG O2 Sat by Pulse Oximetry: 98 Medical Decision Making Medical Decision Making: Crisis evaluation completed. Disposition - Clinical Impression Clinical Impression: Bipolar disorder - Patient ED Disposition Is Patient to be Admitted: No Counseled Patient/Family Regarding: Diagnosis, Need For Followup - Disposition Referrals: [facility] [Outside] Disposition: Routine/Home Disposition Time: 02:42 Condition: STABLE Instructions: Bipolar Disorder (DC)
== END 2017-12-19 02:56 | disposition home or self-care (01) ==
LOC: H.ER 01:07
DX: F31.9 Bipolar disorder, unspecified (principal); F20.9 Schizophrenia, unspecified; F43.10 Post-traumatic stress disorder, unspecified; G40.909 Epilepsy, unspecified, not intractable, without status epilepticus

== ENCOUNTER 2017-12-23 01:31 | Emergency (ER) | payer MEDICARE, MEDICAID ==
[2017-12-23 01:32] VITALS: BMI 20.9
[2017-12-23 01:48] VITALS: RESP 18; O2SAT 100
--- NOTE | 2017-12-23 02:27 | ED PDOC ---
HPI: Seizure Time Seen by Provider: 12/23/17 01:45 Chief Complaint (Nursing): Seizure Chief Complaint (Provider): Seizure History Per: Patient, EMS History/Exam Limitations: no limitations Number Of Seizures: One Length Of Seizures (Duration): Seconds (30) Additional Complaint(s): Brendan Lynn is a 42 year old male with a past medical history of seizures who is presenting to the ED for evaluation of possible seizure onset prior to arrival. Patient states that he had a 30 second seizure but feels completely better right now and is requesting milk. He denies any head injury, headache, chest pain, shortness of breath, nausea, vomiting, or diarrhea. PMD: Doctor, Conversion Past Medical History Reviewed: Historical Data, Nursing Documentation, Vital Signs Vital Signs: Last Vital Signs Temp 98.2 F 12/23/17 04:08 Pulse 86 12/23/17 04:08 Resp 18 12/23/17 04:08 BP 130/86 12/23/17 04:08 Pulse Ox 100 12/23/17 04:08 - Medical History PMH: Anxiety, Bipolar Disorder, Depression, Post Traumatic Stress Disorder, Schizophrenia, Seizures Denies: Diabetes, Hepatitis, HIV, HTN, Chronic Kidney Disease, Sexually Transmitted Disease - Surgical History Surgical History: Tonsillectomy - Family History Family History: States: Unknown Family Hx - Social History Current smoker - smoking cessation education provided: Yes Alcohol: Other (unknown) Drugs: Other (substance abuse) - Immunization History Hx Tetanus Toxoid Vaccination: Yes Hx Influenza Vaccination: Yes Hx Pneumococcal Vaccination: Yes - Home Medications Home Medications: Ambulatory Orders Medication Instructions Recorded ARIPiprazole [Abilify] 5 mg PO BID 7 Days #14 tab 11/30/17 Divalproex [Depakote DR(*BID*)] 750 mg PO HS 7 Days #21 tcp 11/30/17 - Allergies Allergies/Adverse Reactions: Allergies Allergy/AdvReac Type Severity Reaction Status Date / Time amoxicillin Allergy RASH Verified 12/19/17 01:23 haloperidol [From Haldol] Allergy RASH Verified 12/19/17 01:23 lithium Allergy RASH Verified 12/19/17 01:23 olanzapine [From Zyprexa] Allergy RASH Verified 12/19/17 01:23 risperidone [From Risperdal] Allergy RASH Verified 12/19/17 01:23 sertraline [From Zoloft] Allergy RASH Verified 12/19/17 01:23 ziprasidone [From Geodon] Allergy RASH Verified 12/19/17 01:23 Review of Systems ROS Statement: Except As Marked, All Systems Reviewed And Found Negative Cardiovascular: Negative for: Chest Pain Respiratory: Negative for: Shortness of Breath Gastrointestinal: Negative for: Nausea, Vomiting, Diarrhea Neurological: Negative for: Headache Physical Exam - Reviewed Nursing Documentation Reviewed: Yes Vital Signs Reviewed: Yes - Physical Exam Appears: Positive for: Well, Non-toxic, No Acute Distress Head Exam: Positive for: ATRAUMATIC, NORMAL INSPECTION, NORMOCEPHALIC Skin: Positive for: Normal Color, Warm, DRY Eye Exam: Positive for: EOMI, Normal appearance, PERRL ENT: Positive for: Normal ENT Inspection Neck: Positive for: Normal, Painless ROM Cardiovascular/Chest: Positive for: Regular Rate, Rhythm. Negative for: Murmur Respiratory: Positive for: Normal Breath Sounds. Negative for: Respiratory Distress Gastrointestinal/Abdominal: Positive for: Normal Exam, Soft Back: Positive for: Normal Inspection Extremity: Positive for: Normal ROM Neurologic/Psych: Positive for: Alert, Oriented (x3). Negative for: Motor/ Sensory Deficits - Laboratory Results Result Diagrams: 12/23/17 02:43 12/23/17 02:43 - ECG O2 Sat by Pulse Oximetry: 100 (RA) Pulse Ox Interpretation: Normal Medical Decision Making Medical Decision Making: Time: 2:20 Patient reports that he feels completely fine in ED and requesting food. Labs were reviewed which showed no clinically significant abnormalities. Upon provider reevaluation patient is feeling better, is medically stable, and requires no further treatment in the ED at this time. Patient will be discharged. Counseling was provided and all questions were answered regarding diagnosis and need for follow up with PMD. There is agreement to discharge plan. Return if symptoms persist or worsen. Scribe Attestation: Documented by, Gaby Ang acting as a scribe for Dom Webb MD. Provider Scribe Attestation: All medical record entries made by the Scribe were at my direction and personally dictated by me. I have reviewed the chart and agree that the record accurately reflects my personal performance of the history, physical exam, medical decision making, and the department course for this patient. I have also personally directed, reviewed, and agree with the discharge instructions and disposition. Disposition - Clinical Impression Clinical Impression: Frequent seizures - Patient ED Disposition Is Patient to be Admitted: No Counseled Patient/Family Regarding: Studies Performed, Diagnosis, Need For Followup - Disposition Referrals: [facility] [Outside] Former[facility] [Outside] Disposition: Routine/Home Disposition Time: 03:50 Condition: IMPROVED Additional Instructions: follow up with your primary doctor in 1-2 days return to the ED with any worsening or concerning symptoms Instructions: Seizures, Adult (DC) Forms: [employer] (Frisian)
[2017-12-23 02:47] LABS: BASO # 0.1 K/uL (0.0-0.2); EOS # 0.2 K/uL (0.0-0.7); EOS % 2.8 % (0.0-4.0); HEMOGLOBIN 14.5 g/dL (12.0-18.0); LYMPH # 1.5 K/uL (1.0-4.3); LYMPH % 22.7 % (20.0-40.0); MEAN CELL VOLUME 101.9 fl (80.0-94.0); MEAN CORPUSCULAR HEMOGLOBIN 35.6 pg (27.0-31.0); MONO # 0.6 K/uL (0.0-0.8); MONO % 9.4 % (0.0-10.0); NEUT # 4.1 K/uL (1.8-7.0); NEUT % 64.1 % (50.0-75.0); NRBC % 0.1 % (0.0-0.0); RBC 4.06 Mil/uL (4.40-5.90); RED CELL DISTRIBUTION WIDTH 13.6 % (11.5-14.5); WHITE BLOOD COUNT 6.4 K/uL (4.8-10.8)
[2017-12-23 03:07] LABS: ALB/GLOB RATIO 1.1 (1.0-2.1); ALBUMIN 3.7 g/dL (3.5-5.0); ALT/SGPT 29 U/L (21-72); AST/SGOT 31 U/L (17-59); BLOOD UREA NITROGEN 18 mg/dl (9-20); CALCIUM 8.3 mg/dL (8.4-10.2); GFR AFRICAN-AMERICAN > 60; GFR NON-AFRICAN AMERICAN > 60
[2017-12-23 04:26] VITALS: BP 130/86; PULSE 86; TEMP 98.2
== END 2017-12-23 04:13 | disposition home or self-care (01) ==
LOC: H.ER 01:31
DX: G40.909 Epilepsy, unspecified, not intractable, without status epilepticus (principal); F20.9 Schizophrenia, unspecified; F31.9 Bipolar disorder, unspecified; F43.10 Post-traumatic stress disorder, unspecified; F17.200 Nicotine dependence, unspecified, uncomplicated

== ENCOUNTER 2018-01-02 16:22 | Emergency (ER) | payer MEDICARE, MEDICAID ==
[2018-01-02 16:22] VITALS: BMI 20.9
[2018-01-02 16:28] VITALS: BP 116/56; PULSE 84; RESP 16; TEMP 98; O2SAT 97
--- NOTE | 2018-01-02 17:16 | ED PDOC ---
HPI: Psych/Substance Abuse Time Seen by Provider: 01/02/18 16:59 Chief Complaint (Nursing): Psychiatric Evaluation Chief Complaint (Provider): Depression History Per: Patient History/Exam Limitations: no limitations Onset/Duration Of Symptoms: Days (10) Current Symptoms Are (Timing): Still Present Suicide/Self Injury Attempted (Context): None Modifying Factor(s): Crack Additional Complaint(s): Pt presents to the ED via EMS with a self diagnosis of depression because he wants to get back to [place] to see his child and "baby momma" and he can not afford to get there. Pt says that he has considered hurting himself but has not developed a plan Past Medical History Reviewed: Historical Data, Nursing Documentation, Vital Signs Vital Signs: Last Vital Signs Temp 98 F 01/02/18 16:24 Pulse 84 01/02/18 16:24 Resp 16 01/02/18 16:24 BP 116/56 L 01/02/18 16:24 Pulse Ox 97 01/02/18 16:24 - Medical History PMH: Anxiety, Bipolar Disorder, Depression, Post Traumatic Stress Disorder, Schizophrenia, Seizures Denies: Diabetes, Hepatitis, HIV, HTN, Chronic Kidney Disease, Sexually Transmitted Disease - Surgical History Surgical History: Tonsillectomy - Family History Family History: States: Unknown Family Hx - Immunization History Hx Tetanus Toxoid Vaccination: Yes Hx Influenza Vaccination: Yes Hx Pneumococcal Vaccination: Yes - Home Medications Home Medications: Ambulatory Orders Medication Instructions Recorded ARIPiprazole [Abilify] 5 mg PO BID 7 Days #14 tab 11/30/17 Divalproex [Depakote DR(*BID*)] 750 mg PO HS 7 Days #21 tcp 11/30/17 - Allergies Allergies/Adverse Reactions: Allergies Allergy/AdvReac Type Severity Reaction Status Date / Time amoxicillin Allergy RASH Verified 01/02/18 16:23 haloperidol [From Haldol] Allergy RASH Verified 01/02/18 16:23 lithium Allergy RASH Verified 01/02/18 16:23 olanzapine [From Zyprexa] Allergy RASH Verified 01/02/18 16:23 risperidone [From Risperdal] Allergy RASH Verified 01/02/18 16:23 sertraline [From Zoloft] Allergy RASH Verified 01/02/18 16:23 ziprasidone [From Geodon] Allergy RASH Verified 07/15/18 16:23 Review of Systems Psych: Positive for: Depression Physical Exam - Reviewed Nursing Documentation Reviewed: Yes Vital Signs Reviewed: Yes - Physical Exam Appears: Positive for: Well, Non-toxic, No Acute Distress, Uncomfortable Head Exam: Positive for: ATRAUMATIC, NORMAL INSPECTION Skin: Positive for: Normal Color Eye Exam: Positive for: Normal appearance ENT: Positive for: Normal ENT Inspection Neck: Positive for: Normal, Painless ROM, Supple Cardiovascular/Chest: Positive for: Regular Rate, Rhythm. Negative for: Bradycardia, Tachycardia Respiratory: Positive for: Normal Breath Sounds Pulses-Carotid (L): 2+ Pulses-Carotid (R): 2+ Pulses-Radial (L): 2+ Pulses-Radial (R): 2+ Gastrointestinal/Abdominal: Positive for: Normal Exam, Bowel Sounds, Soft. Negative for: Tenderness - ECG O2 Sat by Pulse Oximetry: 97 Medical Decision Making Medical Decision Making: Pt well known to ED staff; seeking trip back to [place] and indicates that he is depressed because he can not get there. Dr Bryant cleared psychologically for discharge and there is no medical reason to hold pt Disposition - Clinical Impression Clinical Impression: Drug abuse - Patient ED Disposition Is Patient to be Admitted: No Discussed With : Joaquin Bryant Doctor Will See Patient In The: Office Counseled Patient/Family Regarding: Diagnosis - Disposition Disposition: Routine/Home Disposition Time: 17:17 Condition: STABLE Instructions: Depression Forms: [employer] (Czech)
== END 2018-01-02 17:41 | disposition home or self-care (01) ==
LOC: H.ER 16:22
DX: Z86.59 Personal history of other mental and behavioral disorders (principal); F43.10 Post-traumatic stress disorder, unspecified; Z00.8 Encounter for other general examination